=== PATIENT | male | born 1980 | race Caucasian/White ===

== ENCOUNTER → 2019-09-17 11:52 | Outpatient (CLI) | payer BC, SELFPAY ==
[2019-09-17 13:52] LABS: Alanine Aminotransferase 29 U/L (12-78); Albumin Level 4.8 g/dl (3.5-5.0); Alkaline Phosphatase 88 U/L (38-126); Aspartate Amino Transferase 25 U/L (17-59); Bilirubin,Direct 0.1 mg/dl (0.0-0.4); Bilirubin,Indirect 0.4 mg/dL (0.0-0.9); Bilirubin,Total 0.5 mg/dl (0.2-1.3); Bilirubin,Unconjugated 0.4 mg/dL (0.0-1.1); Total Protein,Serum 7.5 g/dl (6.3-8.2)
[2019-09-18 16:39] LABS: Estradiol <5.0 pg/mL (7.6-42.6)
[2019-09-21 14:39] LABS: Testosterone, Total, LC/MS 293.2 ng/dL (264.0-916.0)
== END ==
PROVIDERS: Visit Provider Urology
DX: E34.9 Endocrine disorder, unspecified (principal); N35.919 Unspecified urethral stricture, male, unspecified site; R68.89 Other general symptoms and signs; E29.1 Testicular hypofunction
CPT/HCPCS: 36415; 80076; 82670; 83036; 84402; 84403